=== PATIENT | female | born 1955 | race African-American/Black ===

== ENCOUNTER 2024-03-30 10:48 | Outpatient (CLI) | payer MEDICARE | END 2024-03-30 10:49 | disposition home or self-care (01) | LOC: CSHMAMMO 10:48 | PROVIDERS: ATTEND Family Medicine | DX: Z12.31 Encounter for screening mammogram for malignant neoplasm of breast (principal); Z78.0 Asymptomatic menopausal state | CPT/HCPCS: 77067; 77080 ==